=== PATIENT | male | born 1995 | race Caucasian/White ===

== ENCOUNTER 2017-06-13 05:46 | Emergency (ER) | payer SELFPAY ==
[~2017-06-13] VITALS: Ht 175.3 cm; Wt 102.1 kg
[~2017-06-13 05:46] MED LIST: BACTRIM DS 8001 TAB PO; BENTYL10 M1 PO; DICLOFENAC 50MG50 MG PO; FLEXERIL10 MG PO; KEFLEX 500MG.500 MG PO; MEDROL 4MG. DOSE4 MG PO; NAPROSYN 500MG500 MG PO; ONDANSETRON4 M1 PO; PHENERGAN25 M3 PO; PREDNISONE 20MG20 MG PO; ZITHROMAX Z PA250 MG PO; ZOFRAN ODT8 M1 PO
[2017-06-13 06:10] LABS: HEMOGLOBIN 16.3 g/dL (14.1-18.0); LYMPH % 18.4 % (10-50)
[2017-06-13 06:11] LABS: LYMPH # 2.2 K/mm3 (0.7-4.5)
[2017-06-13 06:15] LABS: URINE BILIRUBIN - DIPSTICK NEGATIVE (NEG); URINE BLOOD NEGATIVE (NEG)
--- NOTE | 2017-06-13 06:27 | Emergency Room Report ---
History of Present Illness Time Seen by 0600 Presenting Problem in Triage Pt arrived:Walked Presenting Problem:C/O ABD PAIN X 1 MONTH. 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 N Clinical Suspician of Infection? N Mental Status: 1 - Regular (Normal Baseline) Sepsis Risk:Low Sepsis Risk Have you (or family members/close friends) recently traveled outside the [place]? N If Yes, where/when: Have you had exposure to infectious disease within the past month? N TB? Other? Specify: Source patient, RN notes reviewed, family, old records Exam Limitations no limitations Comment upper abd pain with nausea with no melena - has hx of gerd and no melena with neg gb u/s Cardiac Chest Pain Chest pain indicative of cardiac No Timing/Duration this evening Severity moderate ALLERGIES Coded Allergies: No Known Allergies (05/21/17) Home Medications Reported Medications No Known Home Medications History Medical History General CAD? No Angina: No NM: No Hypertension? No Hyperlipidemia? No CHF? No DVT? No PE? No COPD? No Asthma? No Anemia? No GERD? No Gastric ulcers? No GI Bleed? No Hernia? No Thyroid Problems? No Hypothyroidism? No CVA? No Seizures? No Diabetes? No Insulin Dependent: No Insulin Pump: No Home FSBS? No Renal Insuffiency? No End Stage Renal Disease? No UTI? No Stones? No BPH? No GB Disease: No Nephritic Syndrome? No Asplenia? No Hepatitis? No Sickle Cell Disease? No Arthritis? No Migraines? No Cataracts? No Glaucoma? No MRSA? No HIV? No TB? No Anxiety? No Depression? No Cancer? No More? No Immunization Hx DT/Tetanus 1-4 Years Ago Surgical Hx Previous Surgery?Y Tonsils EAR TUBES Social History Smoking Hx Smoker: Current Every Day Smoker Tobacco: Yes Type Cigarettes Packs/day 1 1/2 - 2 Packs Alcohol Alcohol: No Drugs none Review of Systems All Other Systems Reviewed and Negative Constitutional denies fever Eyes denies drainage ENT denies: ear discharge, epistaxis, throat pain. Respiratory denies cough, denies wheezing Cardiovascular denies chest pain, denies edema, denies syncope Gastrointestinal see HPI, abdominal pain, denies diarrhea, nausea, vomiting Genitourinary denies: dysuria, frequency, hesitancy, hematuria. Musculoskeletal denies back pain, denies joint pain, denies neck pain Skin denies rash Psychiatric/Neurological denies headache, denies seizure Physical Exam Vital Signs Vital Signs Date Time Temp Pulse Resp B/P Pulse O2 O2 Flow FiO2 Ox Delivery Rate 06/13 0713 98.3 67 18 99 06/13 0712 98.3 67 18 99 06/13 0551 98.3 76 18 99 - WBC >12,000 or <4,000 or 10% bands? 2 or more SIRS Criteria Met? B/P: MAP:93 Creatinine >2.0? UA output<0.5ml/kg/hr for 2 hrs? Platelet count >100,000? Lactate >2.0mmol/1? INR >1.2 or PTT > than 60 sec? Evidence of Organ Dysfunction? Provider documented clinical suspician of infection? N Sepsis Criteria Count: 0 Sepsis Risk: Low Sepsis Risk General Appearance no apparent distress Eye Exam - bilateral eye PERRL, bilateral eye EOMI Ear, Nose, Throat normal ENT inspection Neck supple Respiratory Status No: respiratory distress. 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 No Results/Orders Laboratory Tests 06/13/17 0624: Stl Aeromonas (PCR) Pending, Stl Cyclospora species Pending, Stool Rotavirus ( PCR) Pending, Stool Astrovirus (PCR) Pending, Stool Campylobacter PCR Pending, Stool Cryptosporidium PCR Pending, Stl E. histolytica PCR Pending, Stool Giardia Lamblia PCR Pending, Stl P. shigelloides PCR Pending, Stool Sapovirus (PCR) Pending, Stool Vibrio (PCR) Pending, Stl Vibrio cholerae PCR Pending, Stl Norovirus GI/GII PCR Pending, Adenovirus (PCR) Pending, C. difficile Tox (PCR) Pending, E. coli (PCR) Pending, Salmonella (PCR) Pending, Yersinia (PCR) Pending 06/13/17 0555: Urine Color YELLOW, Urine Appearance CLEAR, Urine pH 6.0, Ur Specific Garfield 1.025, Urine Protein NEGATIVE, Urine Ketones NEGATIVE, Urine Blood NEGATIVE, Urine Nitrate NEGATIVE, Urine Bilirubin NEGATIVE, Urine Urobilinogen 0.2, Ur Leukocyte Esterase NEGATIVE, Urine RBC 3-5, Urine WBC NONE, Ur Squamous Epith Cells OCC, Urine Bacteria 1+, Urine Glucose NEGATIVE 06/13/17 0550: Sodium 138, Potassium 4.1, Chloride 101, Carbon Dioxide 28, BUN 19 H, Creatinine 1.0, Estimated Creat Clear 169, Estimated GFR (MDRD) 94, Glucose 132 H, Calcium 9.4, Total Bilirubin 0.4, AST 20, ALT 59, Alkaline Phosphatase 101, Total Protein 8.3 H, Albumin 4.4, Globulin 3.9 H, Albumin/Globulin Ratio 1.1, Amylase 46, Lipase 80, WBC 12.0 H, RBC 5.39, Hgb 16.3, Hct 48.2, MCV 89.5, RDW 14.7, Plt Count 208, Gran % 77.1, Gran # 9.3 H, Lymphocytes % 18.4, Monocytes % 4.5, Lymphocytes # 2.2, Monocytes # 0.5, PUBS MCHC 33.8, MCH 30.2 Current Medication Orders Sig/Florina Start time Last Medication Dose Route Stop Time Status Admin Metoclopramide HCl 0 .STK-MED ONE 06/13 657 DC .ROUTE Famotidine 0 .STK-MED ONE 06/13 0656 DC IV Famotidine 20 MG ONCE ONE 06/13 645 DC 06/13 IV 06/13 646 0704 Metoclopramide HCl 10 MG ONCE ONE 06/13 645 DC 06/13 IVP 06/13 0646 0704 Sodium Chloride 8 ML ONCE ONE 06/13 645 DC 06/13 IV 06/13 0646 0705 Ondansetron HCl 0 .STK-MED ONE 06/13 603 DC .ROUTE Sodium Chloride 1,000 ML .STK-MED ONE 06/13 603 DC IV Ondansetron HCl 4 MG ONCE ONE 06/13 06 DC 06/13 IV 06/13 0601 0607 Sodium Chloride 10 ML PRN PRN 06/13 0600 AC 06/13 IV 06/14 0558 0608 Sodium Chloride 1,000 ML .Q1H1M 06/13 06 DC 06/13 IV 06/13 0700 0606 Sodium Chloride 10 ML PRN PRN 06/13 0600 AC IV 06/14 0559 Orders Procedure Date/time Status DIET-NOTHING BY MOUTH 06/[address] ABD & PELVIS W/O CONTRAST 06/13 06 Active DIARRHEA PANEL, PCR 06/[address] ABD W/RLQ PAIN REQ 06/13 05 Complete IV SALINE LOCK 06/13 559 Active URINALYSIS/COMPLETE 06/13 0559 Complete LIPASE 06/13 0559 Complete CBC WITH AUTO DIFF 06/13 559 Complete CHEM 12 PROFILE 06/13 0559 Complete AMYLASE 06/13 0559 Complete XRAY/CT/US XRAY/CT/US CT abdomen, pelvis CT interpretation by discussed w/radiologist Time results known: 727 CT Results normal/NAD Departure Departure Time of Disposition 727 Disposition DC Home or Self Care(routine) Clinical Impression Primary Impression: Abdominal pain Qualifiers: Abdominal location: unspecified location Qualified Code: R10.9 - Unspecified abdominal pain Secondary Impressions: GERD (gastroesophageal reflux disease) Qualifiers: Esophagitis presence: esophagitis presence not specified Qualified Code: K21.9 - Gastro-esophageal reflux disease without esophagitis Condition STABLE Referrals Maribel Matthew APRN (Family) Patient Instructions DI for Gastroesophageal Reflux Disease (GERD) -- Child Additional Instructions use meds and see pcp for follow up Discharge Counseling Counseled pt/family regarding diagnosis, test results, medications/RX, follow up needs Prescriptions Current Visit Scripts Pantoprazole Sodium (Protonix 40MG TAB) 40 MG PO DAILY #30 TAB ED Critical Care Critical Care No at 0730
[2017-06-13 06:32] LABS: AEROMONAS NOT DETECTED (NOT DETECTE); ASTROVIRUS NOT DETECTED (NOT DETECTE); CYCLOSPORA CAYETANENSIS NOT DETECTED (NOT DETECTE); E COLI O157 NOT DETECTED (NOT DETECTE); ENTEROAGGREGATIVE E COLI NOT DETECTED (NOT DETECTE); ENTEROPATHOGENIC E COLI NOT DETECTED (NOT DETECTE); ENTEROTOXIGENIC E COLI NOT DETECTED (NOT DETECTE); NOROVIRUS NOT DETECTED (NOT DETECTE); SAPOVIRUS NOT DETECTED (NOT DETECTE); SHIGA-LIKE TOXIN PROD. E COLI NOT DETECTED (NOT DETECTE); SHIGELLA/ENTEROINVASIVE E COLI NOT DETECTED (NOT DETECTE); VIBRIO CHOLERAE NOT DETECTED (NOT DETECTE)
[2017-06-13 06:44] LABS: URINE SQUAMOUS CELLS OCC #/hpf (OCC)
[2017-06-13] MEDS ORDERED: PROTONIX 40MG T40 MG PO (07:30)
[2017-06-13 07:38] VITALS: BP 138/65
--- NOTE | 2017-06-13 09:27 | RADIOLOGY REPORT PS360 ---
CT ABD PELVIS W/O CONTRAST CLINICAL INDICATION: RUQ PAIN ORDERING PHYSICIAN: Nathalia Saunders MD PATIENT AGE: 21 years COMPARISON: None TECHNIQUE: Axial images obtained with sagittal and coronal reformats. PROCEDURE: Oral Contrast: None IV Contrast: None . FINDINGS: Lower thorax: No acute finding ABDOMEN: Liver: No masses or biliary dilatation. Gallbladder: Nondistended. No radio opaque stones. Pancreas: No masses or peripancreatic fluid collections. Spleen: Unremarkable. Adrenals: Unremarkable Kidneys/ureters: No masses. No renal calculi. No hydronephrosis. No perinephric fluid collections. No ureteral dilatation or obvious ureteral calculi. Stomach bowel: Nondistended. No obvious mass or thickening. Nonspecific hyperdense material present within the colon consistent with ingested material Appendix: No evidence of appendicitis. PELVIS: Reproductive: Unremarkable Bladder: Nondistended. No obvious stones or masses. ABDOMEN & PELVIS: Peritoneum: No abnormal fluid collections. No obvious inflammatory changes. No free air. Lymph nodes: No enlarged lymph nodes apparent. Vasculature: No evidence of abdominal aortic aneurysm. No retroperitoneal hemorrhage evident. Bones: No acute fracture IMPRESSION: No acute intra-abdominal or pelvic findings
== END 2017-06-13 07:39 | disposition home or self-care (01) ==
LOC: ER 05:46
PROVIDERS: Emergency Medicine
DX: R10.9 Unspecified abdominal pain (principal); K21.9 Gastro-esophageal reflux disease without esophagitis; F17.210 Nicotine dependence, cigarettes, uncomplicated
CPT/HCPCS: J2405

== ENCOUNTER 2017-08-19 23:14 | Emergency (ER) | payer SELFPAY ==
[~2017-08-19] VITALS: Ht 175.3 cm; Wt 104.3 kg
[~2017-08-19 23:14] MED LIST changes: +PROTONIX 40MG T40 MG PO
[2017-08-19 23:23] VITALS: BP 150/78
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
--- OUTSIDE RECORDS SUMMARY | 2017-08-19 23:45 | External Medical Summary Rpt | CCD ---
Author Author , SANTA Organization SANTA Address Unknown Phone [email or web address] Care Team Providers Care Operations Engineer Name Role Phone [employer] Unavailable Unavailable INC, [employer] BOCOOKRAMA, Unavailable Unavailable BOCOOK, [facility]A D [facility] Un[facility] Un[facility] Unavailable Unavailable [facility], [facility] Unavailable Unavailable [facility], [facility] Genny SON, Unavailable Unavailable Genny SON [facility], [facility] Unavailable Unavailable [facility], Unavailable [facility] ANUM, Unavailable Unavailable ANDREIA Butler, ANDREIA ROWAN [place] J, Unavailable Unavailable JESSICA SCHRO[facility]ER [facility] Unavailable Unavailable INC, [facility] Unavailable Unavailable HOSPITAL, [facility] JORGE LUIS PAGE, Unavailable Unavailable JORGE LUIS PAGE [facility] Unavailable Unavailable IMAGING ASS, [facility] Un[facility] Unavailable C[facility], [facility] ANGELA BELTRAN, Unavailable Unavailable ANGELA BELTRAN [facility], Unavailable Unavailable [facility] Unavailable Unavailable ASSOCI, [facility] NEUS ELLIOTT, NEUS ELLIOTT Unavailable Unavailable [facility] Unavailable Unavailable EMS, [facility], Unavailable Unavailable PLLC, [facility], [facility] FABIENNE RODRIGUEZ, Unavailable Unavailable FABIENNE RODRIGUEZ [facility], Unavailable Unavailable [facility], Unavailable Unavailable [facility] Unavailable Unavailable EMERGENCY PHYS, [facility] SIMÓN JARRELL, Unavailable Unavailable SIMÓN [...] NOT PHYSICIANS, SPECIFIED PLLC ACUTE OR CHRONIC [id number] ACUTE 12-09-2015 [facility] SUPPURATIVE [facility] W/O HOSPITAL RUPT EAR DRUM UNS EAR J029 ACUTE 12-09-2015 [facility] PHARYNGITIS [facility] UNSPECIFIED R05 COUGH 12-09-2015 [facility] J209 ACUTE 09-28-2015 [facility] BRONCHITIS [facility] UNSPECIFIED HOSPITAL [id number] PAIN IN 09-28-2015 [place] RIGHT HAND MEDICAL IMAGING ASS [id number] UNSPECIFIED 09-28-2015 [facility] INJURY RT PHYSICIANS, WRIST HAND PLLC FINGERS INITIAL Z720 TOBACCO USE 09-28-2015 [facility] HOSP INC J0190 ACUTE 08-05-2015 [place] SINUSITIS [facility] M542 CERVICALGIA 07-14-2015 [facility] M549 DORSALGIA 07-14-2015 [facility] UNSPECIFIED HEALTH R0602 SHORTNESS 06-26-2015 [place] OF BREATH RADIOLOGY ASSOCIAT R0789 OTHER CHEST 06-26-2015 [place] PAIN MEDICAL IMAGING ASS R079 CHEST PAIN 06-26-2015 [place] UNSPECIFIED RADIOLOGY ASSOCIAT R102 PELVIC AND 06-26-2015 [place] PERINEAL MEDICAL PAIN IMAGING ASS R509 FEVER 06-26-2015 [facility] UNSPECIFIED N EMERGENCY PHYS [id number] UNSPECIFIED 06-26-2015 [place] INJURY OF MEDICAL HEAD IMAGING ASS INITIAL ENCOUNTER [id number] UNSPECIFIED 06-26-2015 [place] INJURY OF MEDICAL PELVIS IMAGING ASS INITIAL ENCOUNTER T07 UNSPECIFIED 06-26-2015 [facility] EMS Z041 ENCOUNTER 06-26-2015 [place] EXAM&OBSERV MEDICAL FOLLOW IMAGING ASS TRANSPORT ACCIDENT R110 NAUSEA 06-25-2015 [facility] R112 NAUSEA WITH 06-25-2015 [facility] UNSPECIFIED HOSPITAL 99893 CHEST PAIN 06-09-2015 [place] UNSPECIFIED MEDICAL IMAGING ASS 71285 OTHER CHEST 06-09-2015 [facility] PAIN PHYSICIANS, [facility] 7840 HEADACHE 02-13-2015 [facility] 92552 VOMITING 01-21-2015 [facility] ALONE HEALTH 4610 ACUTE 01-05-2015 [place] MAXILLARY [facility] SINUSITIS HOSPITAL 7295 PAIN IN 12-12-2014 [place] SOFT MEDICAL TISSUES OF IMAGING ASS LIMB 89385 CONTUSION 12-12-2014 [facility] TECHNOLOGIE S INC 9594 INJURY 12-12-2014 [place] OTHER AND MEDICAL UNSPECIFIED IMAGING ASS HAND EXCEPT FINGER 54278 NAUSEA 09-26-2014 [facility] ALONE HEALTH 3670 HYPERMETROP 09-25-2014 ANGELA MO GRE 5289 OTHER&UNSPE 08-11-2014 [facility]/CO CIFIED HEALTH DISEASES THE ORAL SOFT TISSUES 06594 PAINFUL 05-06-2014 [facility] RESPIRATION N EMERGENCY PHYS 6826 CELLULITIS 04-08-2014 [facility] OF LEG INC EXCEPT FOOT 47900 PAIN IN 04-08-2014 [place] JOINT, MEDICAL LOWER LEG IMAGING ASS 67146 PAIN IN 04-08-2014 [place] JOINT, MEDICAL ANKLE AND IMAGING ASS FOOT 18860 CONTUSION 04-08-2014 [facility] OF LOWER MEM HOS[facility] LEG INC 9597 INJURY 04-08-2014 [place] OTHER&UNSPE MEDICAL CIFIED KNEE IMAGING ASS LEG ANKLE&FOOT 7245 UNSPECIFIED 12-28-2012 [facility] 83435 SPASM OF 12-28-2012 [facility] 462 ACUTE 08-25-2011 NEUS ELLIOTT PHARYNGITIS 8489 UNSPECIFIED 07-18-2011 [facility] SPRAIN AND SCHOOL STRAIN 7862 COUGH 06-17-2011 [facility] 34308 REGULAR 02-01-2011 [facility] V758 SCREENING 11-25-2010 [facility]AM[facility] OTH SPEC SCHOOL PARASITIC INFS V703 OTH GENERAL 05-28-2010 [facility] ADMIN PURPOSES 7842 SWELLING 12-08-2009 [place] MASS OR RADIOLOGY LUMP IN ASSOCIATES HEAD AND PSC NECK 8020 NASAL 12-08-2009 [facility], EMERGENCY CLOSED SERVICES FRACTURE ASSOCIATES 96210 INJURY OF 12-08-2009 [place] FACE AND RADIOLOGY NECK OTHER ASSOCIATES AND PSC UNSPECIFIED 16308 CLOSED 07-17-2009 JESSICA FRACTURE OF SCHROEDER SHAFT OF METACARPAL BONE 44887 CLOSED 05-26-2009 ANGELA FRACTURE EMERGENCY METACARPAL SERVICES BONE SITE ASSOCIATES UNSPECIFIED 9599 INJURY 05-26-2009 [place] OTHER AND RADIOLOGY UNSPECIFIED ASSOCIATES PSC UNSPECIFIED SITE V5489 OTHER 05-26-2009 [place] ORTHOPEDIC RADIOLOGY AFTERCARE ASSOCIATES PSC 3671 MYOPIA 03-18-2009 DORINDA MCHUGH OD V720 EXAMINATION 03-18-2009 DORINDA Miranda OF EYES LOLITA OD AND VISION 4779 ALLERGIC 02-05-2009 Genny SON RHINITIS L CAUSE UNSPECIFIED 6820 CELLULITIS 09-12-2008 Genny SON AND ABSCESS L OF FACE 50011 UNSPECIFIED 07-14-2008 Genny SON INFECTIVE L OTITIS EXTERNA 9114 TRNK INSECT 06-11-2008 [facility] BITE HEALTH NONVENOMOUS CENTRAL WITHOUT BANK ACCT MENTION INF 9164 HIP THI 06-11-2008 [facility] LEG&ANK HEALTH INSECT BITE CENTRAL BANK ACCT NONVENOMOUS W/O INF 61626 UNSPECIFIED 06-09-2008 [facility]. K04.7 PERIAPICAL ABSCESS WITHOUT SINUS K08.89 [...] 20 FA KE OP 41 10 10 PA RR HE 0 LY IC N- K [...] End Date Code Location Performer Type Date [facility] - 6 6 [facility] 5 [facility] - [facility] - 0 0 W [facility] - 9 9 W [facility]
--- OUTSIDE RECORDS SUMMARY | 2017-08-19 23:46 | External Medical Summary Rpt | CCD ---
Author Author , SANTA TALAMANTESXOCHITL Address Unknown Phone [email or web address] Care Team Providers Care Rental Clerk Name Role Phone [employer] Unavailable Unavailable INC, [employer] DIAMONDOOKRAMA, Unavailable Unavailable BOCOOK, RAMA D [facility] Unavailable Unavailable S[facility], [facility] Unavailable Unavailable SCHOOL, [facility] [employer] [facility] Unavailable Unavailable SCHOOL, [facility] [employer] [facility] Genny SON, Unavailable Unavailable Genny SON [facility], [facility] Unavailable Unavailable [facility], Unavailable [facility]available [facility] ANUM, Unavailable Unavailable ANDREIA Butler, ANDREIA ROWAN [place] J, Unavailable Unavailable JESSICA SCHROEDER [facility] Unavailable Unavailable INC, [facility] Unavailable Unavailable HOSPITAL, [facility] JORGE LUIS PAGE, Unavailable Unavailable JORGE LUIS PAGE [facility] Unavailable Unavailable IMAGING ASS, [facility] Un[facility] ANGELA BELTRAN, Unavailable Unavailable ANGELA BELTRAN [facility], Unavailable Unavailable [facility] Unavailable Unavailable ASSOCI, [facility] NEUS ELLIOTT, NEUS ELLIOTT Unavailable Unavailable [facility] Unavailable Unavailable EMS, [facility], Unavailable Unavailable [facility], [facility] FABIENNE RODRIGUEZ, Unavailable Unavailable FABIENNE RODRIGUEZ [facility], Unavailable Unavailable [facility], Unavailable Unavailable [facility] Unavailable Unavailable EMERGENCY PHYS, [facility] SIMÓN JARRELL, Unavailable Unavailable SIMÓN JARRELL Purpose Continuity of Care Document - 06-09-2008 through 2016 Problems Code Diagnosis DOS Provider Status [id number] OTITIS 03-19-2016 [facility]IA [facility], UNSPECIFIED PLLC RIGHT EAR J40 BRONCHITIS 03-19-2016 [facility] NOT PHYSICIANS, SPECIFIED PLLC ACUTE OR CHRONIC [id number] ACUTE 12-09-2015 [place] SUPPURATIVE [facility] W/O HOSPITAL RUPT EAR DRUM UNS EAR J029 ACUTE 12-09-2015 [place] PHARYNGITIS [facility] UNSPECIFIED R05 COUGH 12-09-2015 [facility] J209 ACUTE 09-28-2015 [place] BRONCHITIS [facility] [id number] PAIN IN 09-28-2015 [facility] RIGHT HAND MEDICAL IMAGING ASS [id number] UNSPECIFIED 09-28-2015 [facility] INJURY RT PHYSICIANS, WRIST HAND PLLC FINGERS INITIAL Z720 TOBACCO USE 09-28-2015 [facility] HOSP INC J0190 ACUTE 08-05-2015 [place] SINUSITIS [facility] UNSPECIFIED HOSPITAL M542 CERVICALGIA 07-14-2015 [facility] M549 DORSALGIA 07-14-2015 [facility] UNSPECIFIED HEALTH R0602 SHORTNESS 06-26-2015 [place] OF BREATH RADIOLOGY ASSOCIAT R0789 OTHER CHEST 06-26-2015 [facility] MEDICAL IM[facility]ING ASS R079 CHEST PAIN 06-26-2015 [facility] UNSPECIFIED RADIOLOGY ASSOCIAT R102 PELVIC AND 06-26-2015 [facility] PER[facility]ICAL PAIN IMAGING ASS R509 FEVER 06-26-2015 [facility] UNSPECIFIED N EMERGENCY PHYS [id number] UNSPECIFIED 06-26-2015 [facility] INJURY OF MEDICAL HEAD IMAGING ASS INITIAL ENCOUNTER [id number] UNSPECIFIED 06-26-2015 [facility] INJURY OF MEDICAL PELVIS IMAGING ASS INITIAL ENCOUNTER T07 UNSPECIFIED 06-26-2015 [facility] INJURIES [facility] EMS Z041 ENCOUNTER 06-26-2015 [place] EXAM&OBSERV MEDICAL FOLLOW IMAGING ASS TRANSPORT ACCIDENT R110 NAUSEA 06-25-2015 [facility] R112 NAUSEA WITH 06-25-2015 [place] VOMITING [facility] UNSPECIFIED HOSPITAL 89214 CHEST PAIN 06-09-2015 [place] UNSPECIFIED MEDICAL IMAGING ASS 02365 OTHER CHEST 06-09-2015 [facility] PAIN PHYSICIANS, PLLC 7840 HEADACHE 02-13-2015 [facility] 35387 VOMITING 01-21-2015 [facility] ALONE [facility]ALTH 4610 ACUTE 01-05-2015 [place] MAXILLARY [facility] SINUS[facility]IS [facility]OSPITAL 7295 PAIN IN 12-12-2014 [place] SOFT MEDICAL TISSUES OF IMAGING ASS LIMB 38648 CONTUSION 12-12-2014 [facility] HAND TECHNOLOGIE S INC 9594 INJURY 12-12-2014 [place] OTHER AND MEDICAL UNSPECIFIED IMAGING ASS HAND EXCEPT FINGER 45329 NAUSEA 09-26-2014 [facility] ALONE [facility] 3670 HYPERMETROP 09-25-2014 [facility] GRE 5289 OTHER&UNSPE 08-11-2014 [facility] CIFIED HEALTH DISEASES THE ORAL SOFT TISSUES 76095 PAINFUL 05-06-2014 [facility] RESPIRATION N EMERGENCY PHYS 6826 CELLULITIS 04-08-2014 [facility]OS[facility] OF LEG INC EXCEPT FOOT 37030 PAIN IN 04-08-2014 [place] JOINT, MEDICAL LOWER LEG IMAGING ASS 75815 PAIN IN 04-08-2014 [place] JOINT, MEDICAL ANKLE AND IMAGING ASS FOOT 88478 CONTUSION 04-08-2014 [facility] OF LOWER MEM HOSP LEG INC 9597 INJURY 04-08-2014 [place] OTHER&UNSPE MEDICAL CIFIED KNEE IMAGING ASS LEG ANKLE&FOOT 7245 UNSPECIFIED 12-28-2012 [facility] 52589 SPASM OF 12-28-2012 [facility] 462 ACUTE 08-25-2011 NEUS ELLIOTT PHARYNGITIS 8489 UNSPECIFIED 07-18-2011 [facility] SPRAIN AND SCHOOL STRAIN 7862 COUGH 06-17-2011 [facility] 49814 REGULAR 02-01-2011 [facility] V758 SCREENING 11-25-2010 [facility] PARASITIC INFS V703 OT GENERAL 05-28-2010 [facility] MEDICAL PRIMARY EXAM[facility]ATION CARE CENTER ADMIN PURPOSES 7842 SWELLING 12-08-2009 [facility] MASS OR RADIOLOGY LUMP IN ASSOCIATES HEAD AND PSC NECK 8020 NASAL 12-08-2009 ANGELA BONES, EMERGENCY CLOSED SERVICES FRACTURE ASSOCIATES 61634 INJURY OF 12-08-2009 [facility] FACE AND RADIOLOGY NECK OTHER ASSOCIATES AND PSC UNSPECIFIED 20965 CLOSED 07-17-2009 JESS[facility] FRACTURE OF [place] SHAFT OF METACARPAL BONE 06358 CLOSED 05-26-2009 AN[place]EL[place] FRACTURE EMERGENCY METACARPAL SERVICES BONE SITE ASSOCIATES UNSPECIFIED 9599 INJURY 05-26-2009 [facility] OTHER AND RADIOLOGY UNSPECIFIED ASSOCIATES PSC UNSPECIFIED SITE V5489 OTHER 05-26-2009 [facility] ORTHOPEDIC [facility]IOLOG[facility] AFTERCARE ASSOCIATES PSC 3671 MYOPIA 03-18-2009 DORINDA MCHUGH OD V720 EXAMINATION 03-18-2009 DORINDA Miranda OF EYES LOLITA OD AND VISION 4779 ALLERGIC 02-05-2009 Genny SON RHINITIS L CAUSE UNSPECIFIED 6820 CELLULITIS 09-12-2008 Genny SON AND ABSCESS L OF FACE 48895 UNSPECIFIED 07-14-2008 Genny SON INFECTIVE L OTITIS EXTERNA 9114 TRNK INSECT 06-11-2008 [facility] BITE HEALTH NONVENOMOUS CENTRAL WITHOUT BANK ACCT MENTION INF 9164 HIP THI 06-11-2008 [facility] LEG&ANK HEALTH INSECT BITE CENTRAL BANK ACCT NONVENOMOUS W/O INF 95065 UNSPECIFIED 06-09-2008 [facility] Medications Na ND Rx Da Fi Fi [...] .0 YN 18 PE ti 10 9 9- 00 OL 61 -B ve 34 20 20 DS UR 90 11 11 NS 5 PH AR SA MA LL CY Y AC 00 01 01 16 4 RE 69 PO Ac ET 40 -3 -3 .0 YN 14 PE ti AM 60 1- 1- 00 OL 31 -B ve IN 48 [...] 20 FA KE OP 41 10 10 WI RR HE 0 LY IC N- K CO DR L D UG #3 TA BL ET AM 00 12 12 00 30 10 RE 67 No Ac OX 78 -1 -3 .0 YN 47 t ti IC 12 4- 1- 00 OL 28 Av ve IL 61 20 20 DS ai LI 30 09 09 la N 5 PH bl 50 AR e 0 MA MG CY CA PS UL E 00 09 00 24 4 RE 67 PO Ac 59 -0 -2 .0 YN 03 RN ti 10 8- 4- 00 OL 74 OY ve 34 20 20 DS 90 09 09 GE 5 PH OF AR FR MA EY CY A 00 09 00 20 20 RE 67 MEI Ac 59 -1 -2 .0 YN 06 RR ti 10 OL 04 IS ve 34 20 20 [...] .0 YN 01 IN ti XI 37 6 OL 87 DL ve CA 23 20 20 DS EY M 40 08 09 M 7. 1 PH L 5 AR MG MA CY TA BL ET CE 68 12 01 00 40 10 RE 66 BR Ac PH 18 -2 -0 .0 YN 01 IN ti AL 00 OL 86 DL ve EX 12 20 20 DS EY IN 20 08 09 M 2 PH L 50 AR 0 MA MG CY CA PS UL E Encounters Encounter Start End Date Code Location Performer Type Date [facility] - 6 6 [facility] [place] - 5 5 W [facility] 4 4 [facility] 0 [facility] 9 9 W [facility]
--- OUTSIDE RECORDS SUMMARY | 2017-08-19 23:46 | External Medical Summary Rpt ---
Author Author [employer] Owen, [employer] Address Unknown Phone Unavailable Results DIARRHEA PANEL,PCR Observa Value Referen Units Interpr Notes Date tion ce etation Range Adenovi NOT NOT No No No Sep 26 sanju DETECTE DETECTE informa informa informa 2017 40+41 D tion in tion in tion in 6:24 AM Ag source source source [Presen data data data ce] in Stool Aeromon NOT NOT No No No Sep 26 as DETECTE DETECTE informa informa informa 2016 salmoni D tion in tion in tion in 6:24 AM gerber source source source [Presen data data data ce] in Unspeci fied specime n Astrovi NOT NOT No No No Sep 26 sanju DETECTE DETECTE informa informa informa 2017 [Presen D tion in tion in tion in 6:24 AM ce] in source source source Stool data data data by Electro n microsc opy Campylo NOT NOT No No No Sep 26 bacter DETECTE DETECTE informa informa informa 2016 sp Ab D tion in tion in tion in 6:24 AM [Presen source source source ce] in data data data Serum Clostri NOT NOT No No No Sep 26 dium DETECTE DETECTE informa informa informa 2017 diffici D tion in tion in tion in 6:24 AM le source source source toxin data data data A+B [Presen ce] in Stool Cryptos NOT NOT No No No Sep 26 poridiu DETECTE DETECTE informa informa informa 2017 m sp Ag D tion in tion in tion in 6:24 AM source source source [Presen data data data ce] in Unspeci fied specime n Cyclosp NOT NOT No No No Sep 26 ora DETECTE DETECTE informa informa informa 2017 cayetan D tion in tion in tion in 6:24 AM bobbi source source source [Presen data data data ce] in Unspeci fied specime n Escheri NOT NOT No No No Sep kj DETECTE DETECTE informa informa informa 2017 coli D tion in tion in tion in 6:24 AM [Presen source source source ce] in data data data Unspeci fied specime n by Culture FDA method Escheri NOT NOT No No No Jun 13 kj DETECTE DETECTE informa informa informa 2017 coli D tion in tion in tion in 6:24 AM [Presen source source source ce] in data data data Unspeci fied specime n by Culture FDA method Escheri NOT NOT No No No Sep kj DETECTE DETECTE informa informa informa 2017 coli D tion in tion in tion in 6:24 AM Shiga-l source source source david data data data toxin 1 assa Escheri NOT NOT No No No Jun 13 kj DETECTE DETECTE informa informa informa 2017 coli D tion in tion in tion in 6:24 AM [id number] source source source data data data [Presen ce] in Stool by Organis m specifi c culture Entamoe NOT NOT No No No Sep ba DETECTE DETECTE informa informa informa 2017 histoly D tion in tion in tion in 6:24 AM cindy source source source [Presen data data data ce] in Stool by Trichro me stain Giardia NOT NOT No No No Jun 13 DETECTE DETECTE informa informa informa 2017 lamblia D tion in tion in tion in 6:24 AM Ag source source source [Presen data data data ce] in Stool Norovir NOT NOT No No No Jun 13 us Ag DETECTE DETECTE informa informa informa 2017 [Presen D tion in tion in tion in 6:24 AM ce] in source source source Stool data data data Stool NOT NOT No No No Jun 13 Plesiom DETECTE DETECTE informa informa informa 2017 onas D tion in tion in tion in 6:24 AM shigell source source source oides data data data DNA detec Rotavir NOT NOT No No No Jun 13 us RNA DETECTE DETECTE informa informa informa 2017 detecti D tion in tion in tion in 6:24 AM on by source source source probe data data data and tar Salmone NOT NOT No No No Sep lla sp DETECTE DETECTE informa informa informa 2017 DNA D tion in tion in tion in 6:24 AM [Identi source source source fier] data data data in Unspeci fied specime n by Probe & target amplifi cation method Caliciv NOT NOT No No No Sep irus DETECTE DETECTE informa informa informa 2017 [Identi D tion in tion in tion in 6:24 AM fier] source source source in data data data Stool by Electro n microsc opy Escheri NOT NOT No No No Sep kj DETECTE DETECTE informa informa informa 2017 coli D tion in tion in tion in 6:24 AM [Presen source source source ce] in data data data Unspeci fied specime n by Culture FDA method Escheri NOT NOT No No No Sep kj DETECTE DETECTE informa informa informa 2017 coli D tion in tion in tion in 6:24 AM SXT source source source gene+H7 data data data gene [Identi fier] in Unspeci fied specime n by Probe & target amplifi cation method Vibrio NOT NOT No No No Sep cholera DETECTE DETECTE informa informa informa 2017 e DNA D tion in tion in tion in 6:24 AM [Presen source source source ce] in data data data Unspeci fied specime n by Probe & target amplifi cation method Vibrio NOT NOT No No No Sep sp DNA DETECTE DETECTE informa informa informa 2016 [Identi D tion in tion in tion in 6:24 AM fier] source source source in data data data Unspeci fied specime n by Probe & target amplifi cation method Vibrio NOT NOT No No No Sep sp DETECTE DETECTE informa informa informa 2017 identif D tion in tion in tion in 6:24 AM ied in source source source Stool data data data by Organis m specifi c culture Urinalysis dipstick W Reflex Microscopic panel in Urine Observa Value Referen Units Interpr Notes Date tion ce etation Range Appeara CLEAR CLEAR No No No Sep 26 nce of informa informa informa 2017 Urine tion in tion in tion in 5:55 AM source source source data data data Bacteri 1+ O No No No Sep 26 a informa informa informa 2017 [Presen tion in tion in tion in 5:55 AM ce] in source source source Urine data data data sedimen t by Light microsc opy Bilirub NEGATIV NEG No No No Sep 26 in E informa informa informa 2017 [Presen tion in tion in tion in 5:55 AM ce] in source source source Urine data data data by Test strip Erythro NEGATIV NEG No No No Sep cytes E informa informa informa 2017 [Presen tion in tion in tion in 5:55 AM ce] in source source source Urine data data data Color YELLOW YELLOW No No No Sep 26 of informa informa informa 2017 Urine tion in tion in tion in 5:55 AM source source source data data data Glucose NEG No No No Sep 26 [Mass/vol informati informati informati 2017 5:55 ume] in on in on in on in AM Urine by source source source Test data data data strip Ketones NEGATIV NEG mg/dL No No Sep E informa informa 2016 [Presen tion in tion in 5:55 AM ce] in source source Urine data data by Automat ed test strip Mucus NEGATIV NEG No No No Sep [Presen E informa informa informa 2016 ce] in tion in tion in tion in 5:55 AM Urine source source source sedimen data data data t by Light microsc opy Nitrite NEGATIV NEG No No No Sep E informa informa informa 2016 [Presen tion in tion in tion in 5:55 AM ce] in source source source Urine data data data by Test strip pH of 5.0 - 8.5 No Normal No Sep 26 Urine informati informati 2017 5:55 on in on in AM source source data data Protein NEG mg/dL No No Sep 26 [Mass/vol informati informati 2017 5:55 ume] in on in on in AM Urine by source source Automated data data test strip Erythro 3-5 0 rbc/hpf No No Sep 26 cytes informa informa 2017 [Presen tion in tion in 5:55 AM ce] in source source Urine data data sedimen t by Light microsc opy Specific 1.005 - No Normal No Sep 26 gravity 1.030 informati informati 2017 5:55 of Urine on in on in AM source source data data Epithel OCC OCC #/hpf No No Sep ial informa informa 2017 cells.s tion in tion in 5:55 AM quamous source source data data [Presen ce] in Urine sedimen t by Microsc opy high power field Urobili 0.2 NEG E.U./dL No No Jun 13 nogen informa informa 2016 [Presen tion in tion in 5:55 AM ce] in source source Urine data data by Test strip Leukocyte O wbc/hpf No No Sep s informati informati 2017 5:55 [#/volume on in on in AM ] in source source Urine data data Urinalysis dipstick W Reflex Microscopic panel in Urine Observa Value Referen Units Interpr Notes Date tion ce etation Range Appeara CLEAR CLEAR No No No Jun 13 nce of informa informa informa 2017 Urine tion in tion in tion in 5:55 AM source source source data data data Bilirub NEGATIV NEG No No No Jun 13 in E informa informa informa 2016 [Presen tion in tion in tion in 5:55 AM ce] in source source source Urine data data data by Test strip Erythro NEGATIV NEG No No No Jun 13 cytes E informa informa informa 2016 [Presen tion in tion in tion in 5:55 AM ce] in source source source Urine data data data Color YELLOW YELLOW No No No Jun 13 of informa informa informa 2017 Urine tion in tion in tion in 5:55 AM source source source data data data Glucose NEG No No No Jun 13 [Mass/vol informati informati informati 2017 5:55 ume] in on in on in on in AM Urine by source source source Test data data data strip Ketones NEGATIV NEG mg/dL No No Jun 13 E informa informa 2016 [Presen tion in tion in 5:55 AM ce] in source source Urine data data by Automat ed test strip Mucus NEGATIV NEG No No No Sep [Presen E informa informa informa 2016 ce] in tion in tion in tion in 5:55 AM Urine source source source sedimen data data data t by Light microsc opy Nitrite NEGATIV NEG No No No Sep 26 E informa informa informa 2016 [Presen tion in tion in tion in 5:55 AM ce] in source source source Urine data data data by Test strip pH of 5.0 - 8.5 No Normal No Sep 26 Urine informati informati 2017 5:55 on in on in AM source source data data Protein NEG mg/dL No No Sep 26 [Mass/vol informati informati 2017 5:55 ume] in on in on in AM Urine by source source Automated data data test strip Specific 1.005 - No Normal No Sep 26 gravity 1.030 informati informati 2016 5:55 of Urine on in on in AM source source data data Urobili 0.2 NEG E.U./dL No No Sep 26 nogen informa informa 2016 [Presen tion in tion in 5:55 AM ce] in source source Urine data data by Test strip Amylase [Enzymatic activity/volume] in Serum or Plasma Observa Value Referen Units Interpr Notes Date tion ce etation Range Amylase 25 - 115 U/L Normal No Sep 26 [Enzymati informati 2017 5:50 c on in AM activity/ source volume] data in Serum or Plasma Comprehensive metabolic 2000 panel in Serum or Plasma Observa Value Referen Units Interpr Notes Date tion ce etation Range Albumin/G 1.1 - 1.8 No Normal No Sep 26 lobulin informati informati 2016 5:50 [Mass on in on in AM ratio] in source source Serum or data data Plasma Albumin 3.4 - 5.0 gm/dL Normal No Sep 26 [Mass/vol informati 2016 5:50 ume] in on in AM Serum or source Plasma data Alkaline 46 - 116 U/L Normal No Sep 26 phosphata informati 2017 5:50 se on in AM [Enzymati source c data activity/ volume] in Serum or Plasma Bilirubin 0.2 - 1.0 mg/dL Normal No Sep 26 .total informati 2017 5:50 [Mass/vol on in AM ume] in source Serum or data Plasma Urea 7 - 18 mg/dL High No Sep 26 nitrogen informati 2017 5:50 [Mass/vol on in AM ume] in source Serum or data Plasma Calcium 8.5 - mg/dL Normal No Sep 26 [Mass/vol 10.1 informati 2017 5:50 ume] in on in AM Serum or source Plasma data Chloride 98 - 107 mmoL/L Normal No Sep 26 [Moles/vo informati 2016 5:50 lume] in on in AM Serum or source Plasma data Carbon 21.0 - mmoL/L Normal No Sep 26 dioxide, 32.0 informati 2016 5:50 total on in AM [Moles/vo source lume] in data Serum or Plasma Creatinin 0.70 - mg/dL Normal No Sep 26 e 1.30 informati 2016 5:50 [Mass/vol on in AM ume] in source Serum or data Plasma Creatinin 50 - 200 ML/MIN Normal No Sep 26 e renal informati 2016 5:50 clearance on in AM source predicted data by Cockcroft -Gault formula Estimated >60 ML/MIN No REFERENCE Sep 26 informati RANGE: 2016 5:50 glomerula on in >60 AM r source ML/MIN/1. filtratio data 73 SQUARE n rate METERSIf (GF this patient is -A merican, then multiply theresult by 1.210. Globulin 1.3 - 3.2 gm/dL High No Sep [Mass/vol informati 2016 5:50 ume] in on in AM Serum source data Glucose 74 - 106 mg/dL High No Sep 26 [Mass/vol informati 2016 5:50 ume] in on in AM Serum or source Plasma data Potassium 3.5 - 5.1 mmoL/L Normal No Sep 26 informati 2016 5:50 [Moles/vo on in AM lume] in source Serum or data Plasma Sodium 136 - 145 mmoL/L Normal No Sep 26 [Moles/vo informati 2016 5:50 lume] in on in AM Serum or source Plasma data Aspartate 15 - 37 U/L Normal No Sep informati 2016 5:50 aminotran on in AM sferase source [Enzymati data c activity/ volume] in Serum or Plasma Alanine 12 - 78 U/L Normal No Sep 26 aminotran informati 2016 5:50 sferase on in AM [Enzymati source c data activity/ volume] in Serum or Plasma Protein 6.4 - 8.2 gm/dL High No Sep 26 [Mass/vol informati 2016 5:50 ume] in on in AM Serum or source Plasma data Lipase [Enzymatic activity/volume] in Serum or Plasma Observa Value Referen Units Interpr Notes Date tion ce etation Range Lipase 73 - 393 U/L Normal No Sep 26 [Enzymati informati 2017 5:50 c on in AM activity/ source volume] data in Serum or Plasma CBC W Auto Differential panel in Blood Observa Value Referen Units Interpr Notes Date tion ce etation Range Granulocy 1.3 - 8.0 K/mm3 High No Sep 26 felicitas informati 2016 5:50 [#/volume on in AM ] in source Blood by data Automated count Granulocy 37.0 - % Normal No Sep 26 felicitas/100 80.0 informati 2017 5:50 leukocyte on in AM s in source Blood by data Automated count Hematocri 42.0 - % Normal No Sep 26 t [Volume 52.0 informati 2016 5:50 on in AM Fraction] source of Blood data Hemoglobi 14.1 - g/dL Normal No Sep 26 n 18.0 informati 2016 5:50 [Mass/vol on in AM ume] in source Blood data Lymphocyt 0.7 - 4.5 K/mm3 Normal No Sep 26 es informati 2016 5:50 [#/volume on in AM ] in source Unspecifi data ed specimen by Automated count Lymphocyt 10 - 50 % Normal No Sep 26 es informati 2016 5:50 [#/volume on in AM ] in source Unspecifi data ed specimen by Automated count Erythrocy 27 - 31.2 pg Normal No Sep 26 te mean informati 2017 5:50 corpuscul on in AM ar source hemoglobi data n [Entitic mass] Erythrocy 31.8 - g/dl Normal No Sep 26 te mean 35.4 informati 2016 5:50 corpuscul on in AM ar source hemoglobi data n concentra tion [Mass/vol ume] by Automated count Erythrocy 82.2 - fL Normal No Sep 26 te mean 97.8 informati 2016 5:50 corpuscul on in AM ar volume source [Entitic data volume] by Automated count Monocytes 0.1 - 1.0 K/mm3 Normal No Sep 26 informati 2016 5:50 [#/volume on in AM ] in source Blood by data Automated count Monocytes 1.7 - 9.3 % Normal No Sep 26 /100 informati 2016 5:50 leukocyte on in AM s in source Blood by data Automated count Platelets 142 - 424 K/mm3 Normal No Sep 26 informati 2017 5:50 [#/volume on in AM ] in source Blood data Erythrocy 4.6 - 6.2 M/mm3 Normal No Sep 26 felicitas informati 2017 5:50 [#/volume on in AM ] in source Amniotic data fluid Erythrocy 11.5 - % Normal No Sep 26 te 17.5 informati 2017 5:50 distribut on in AM ion width source [Entitic data volume] by Automated count Leukocyte 4.8 - K/mm3 High No Sep 26 s 10.8 informati 2016 5:50 [#/volume on in AM ] in source Blood data Comprehensive metabolic 2000 panel in Serum or Plasma Observa Value Referen Units Interpr Notes Date tion ce etation Range Albumin/G 1.1 - 1.8 No Normal No Sep 8 lobulin informati informati 2017 3:22 [Mass on in on in PM ratio] in source source Serum or data data Plasma Albumin 3.4 - 5.0 gm/dL Normal No Sep 8 [Mass/vol informati 2017 3:22 ume] in on in PM Serum or source Plasma data Alkaline 46 - 116 U/L Normal No Sep 8 phosphata informati 2017 3:22 se on in PM [Enzymati source c data activity/ volume] in Serum or Plasma Bilirubin 0.2 - 1.0 mg/dL Normal No Sep 8 .total informati 2017 3:22 [Mass/vol on in PM ume] in source Serum or data Plasma Urea 7 - 18 mg/dL Normal No Sep 8 nitrogen informati 2017 3:22 [Mass/vol on in PM ume] in source Serum or data Plasma Calcium 8.5 - mg/dL Normal No Sep 8 [Mass/vol 10.1 informati 2017 3:22 ume] in on in PM Serum or source Plasma data Chloride 98 - 107 mmoL/L Normal No Sep 8 [Moles/vo informati 2017 3:22 lume] in on in PM Serum or source Plasma data Carbon 21.0 - mmoL/L Normal No Sep 8 dioxide, 32.0 informati 2017 3:22 total on in PM [Moles/vo source lume] in data Serum or Plasma Creatinin 0.70 - mg/dL Normal No Sep 8 e 1.30 informati 2017 3:22 [Mass/vol on in PM ume] in source Serum or data Plasma Estimated >60 ML/MIN No REFERENCE Sep 8 informati RANGE: 2017 3:22 glomerula on in >60 PM r source ML/MIN/1. filtratio data 73 SQUARE n rate METERSIf (GF this patient is -A merican, then multiply theresult by 1.210. Globulin 1.3 - 3.2 gm/dL High No Sep 8 [Mass/vol informati 2016 3:22 ume] in on in PM Serum source data Glucose 74 - 106 mg/dL Normal No Sep 8 [Mass/vol informati 2016 3:22 ume] in on in PM Serum or source Plasma data Potassium 3.5 - 5.1 mmoL/L Normal No Sep 8 inform2016 3:22 [Moles/vo on in PM lume] in source Serum or data Plasma Sodium 136 - 145 mmoL/L Normal No Sep 8 [Moles/vo informati 2016 3:22 lume] in on in PM Serum or source Plasma data Aspartate 15 - 37 U/L Low No Sep 8 inform2016 3:22 aminotran on in PM sferase source [Enzymati data c activity/ volume] in Serum or Plasma Alanine 12 - 78 U/L Normal No Sep 8 aminotran informati 2016 3:22 sferase on in PM [Enzymati source c data activity/ volume] in Serum or Plasma Protein 6.4 - 8.2 gm/dL Normal No Sep 8 [Mass/vol informati 2016 3:22 ume] in on in PM Serum or source Plasma data Thyroxine (T4) free [Mass/volume] in Serum or Plasma Observa Value Referen Units Interpr Notes Date tion ce etation Range Thyroxine 0.76 - ng/dL Normal No Sep 8 (T4) 1.46 inform2016 3:22 free on in PM [Mass/vol source ume] in data Serum or Plasma Lipid 1996 panel in Serum or Plasma Observa Value Referen Units Interpr Notes Date tion ce etation Range Cholester < 200 mg/dL No No Sep 8 ol informati informati 2016 3:22 [Moles/vo on in on in PM lume] in source source Unspecifi data data ed specimen Cholester 40 - 60 MG/DL Normal No Sep 8 ol in HDL informati 2016 3:22 on in PM [Mass/vol source ume] in data Serum or Plasma Cholester 0 - 130 mg/dL Normal No Sep 8 ol in LDL informati 2016 3:22 on in PM [Mass/vol source ume] in data Serum or Plasma by calculati on Triglycer 30 - 200 mg/dL Normal No Sep 8 nori inform2016 3:22 [Moles/vo on in PM lume] in source Serum or data Plasma Cholester 0 - 40 No Normal No Sep 8 ol in informati inform2016 3:22 VLDL on in on in PM [Mass/vol source source ume] in data data Serum or Plasma Thyrotropin [Units/volume] in Serum or Plasma Observa Value Referen Units Interpr Notes Date tion ce etation Range Thyrotrop 0.358 - uIU/ml Normal No Sep 8 in 3.740 informati 2016 3:22 [Units/vo on in PM lume] in source Serum or data Plasma CBC W Auto Differential panel in Blood Observa Value Referen Units Interpr Notes Date tion ce etation Range Basophils 0 - 0.2 K/MM3 Normal No Sep 8 inform2016 3:22 [#/volume on in PM ] in source Blood by data Automated count Basophils 0.1 - 2.0 % Normal No Sep 8 /100 informati 2016 3:22 leukocyte on in PM s in source Blood by data Automated count Eosinophi 0.0 - 0.4 K/mm3 Normal No Sep 8 ls informati 2016 3:22 [#/volume on in PM ] in source Blood by data Automated count Eosinophi 0.1 - % Normal No Sep 8 ls/100 12.0 informati 2016 3:22 leukocyte on in PM s in source Blood by data Automated count Granulocy 1.3 - 8.0 K/mm3 Normal No Sep 8 felicitas 2016 3:22 [#/volume on in PM ] in source Blood by data Automated count Granulocy 37.0 - % Normal No Sep 8 felicitas/100 80.0 informati 2016 3:22 leukocyte on in PM s in source Blood by data Automated count Hematocri 42.0 - % Normal No Sep 8 t [Volume 52.0 informati 2016 3:22 on in PM Fraction] source of Blood data Hemoglobi 14.1 - g/dL Normal No Sep 8 n 18.0 informati 2016 3:22 [Mass/vol on in PM ume] in source Blood data Lymphocyt 0.7 - 4.5 K/mm3 Normal No Sep 8 es 2016 3:22 [#/volume on in PM ] in source Unspecifi data ed specimen by Automated count Lymphocyt 10 - 50 % Normal No Sep 8 es informati 2016 3:22 [#/volume on in PM ] in source Unspecifi data ed specimen by Automated count Erythrocy 27 - 31.2 pg Normal No Sep 8 te mean informati 2017 3:22 corpuscul on in PM ar source hemoglobi data n [Entitic mass] Erythrocy 31.8 - g/dl Normal No Sep 8 te mean 35.4 informati 2016 3:22 corpuscul on in PM ar source hemoglobi data n concentra tion [Mass/vol ume] by Automated count Erythrocy 82.2 - fl Normal No Sep 8 te mean 97.8 informati 2016 3:22 corpuscul on in PM ar volume source [Entitic data volume] by Automated count Monocytes 0.1 - 1.0 K/mm3 Normal No Sep 8 informati 2016 3:22 [#/volume on in PM ] in source Blood by data Automated count Monocytes 1.7 - 9.3 % Normal No Sep 8 /100 informati 2016 3:22 leukocyte on in PM s in source Blood by data Automated count Platelet 7.4 - fl Normal No Sep 8 mean 10.4 informati 2016 3:22 volume on in PM [Entitic source volume] data in Blood by Automated count Platelets 142 - 424 K/mm3 Normal No Sep 8 informati 2016 3:22 [#/volume on in PM ] in source Blood data Erythrocy 4.6 - 6.2 M/mm3 Normal No Sep 8 felicitas informati 2016 3:22 [#/volume on in PM ] in source Amniotic data fluid Erythrocy 11.5 - % Normal No Sep 8 te 17.5 informati 2016 3:22 distribut on in PM ion width source [Entitic data volume] by Automated count Leukocyte 4.8 - K/MM3 Normal No Sep 8 s 10.8 informati 2016 3:22 [#/volume on in PM ] in source Blood data
--- OUTSIDE RECORDS SUMMARY | 2017-08-19 23:46 | External Medical Summary Rpt | CCD ---
Author Author , SANTA TALAMANTESXOCHITL Address Unknown Phone [email or web address] Immunization Name Date Rout CVX Reac Dose Comm Prov Is Faci e tion ent ider Refu lity Give sed n DTaP 03-2 107 999 Hist H112 No H112 , UF 2-20 oric 00 al Info rmat ion - Sour ce Unsp ecif ied Mohan 03-0 10 999 Hist H112 No H112 o-IP 8-20 oric V 00 al Info rmat ion - Sour ce Unsp ecif ied MMR 03-0 3 999 Hist H112 No H112 8-20 oric 00 al Info rmat ion - Sour ce Unsp ecif ied DTP- 09-1 22 999 Hist H112 No H112 Hib 1-19 oric 97 al Info rmat ion - Sour ce Unsp ecif ied MMR 09-1 3 999 Hist H112 No H112 1-19 oric 97 al Info rmat ion - Sour ce Unsp ecif ied Vari 04-1 21 999 Hist H112 No H112 cell 1-19 oric a 97 al Info rmat ion - Sour ce Unsp ecif ied Hep 04-1 8 999 Hist H112 No H112 B, 1-19 oric ped/ 97 al adol Info rmat ion - Sour ce Unsp ecif ied DTP- 09-1 22 999 Hist H112 No H112 Hib 1-19 oric 96 al Info rmat ion - Sour ce Unsp ecif ied Mohna 09-1 2 999 Hist H112 No H112 o-OP 1-19 oric V 96 al Info rmat ion - Sour ce Unsp ecif ied Mohan 07-1 2 999 Hist H112 No H112 o-OP 1-19 oric V 96 al Info rmat ion - Sour ce Unsp ecif ied DTP- 07-1 22 999 Hist H112 No H112 Hib 1-19 oric 96 al Info rmat ion - Sour ce Unsp ecif ied DTP- 05-0 22 999 Hist H112 No H112 Hib 7-19 oric 96 al Info rmat ion - Sour ce Unsp ecif ied Hep 05-0 45 999 Hist H112 No H112 B, 7-19 oric UF 96 al Info rmat ion - Sour ce Unsp ecif ied Mohan 05-0 2 999 Hist H112 No H112 o-OP 7-19 oric V 96 al Info rmat ion - Sour ce Unsp ecif ied
--- OUTSIDE RECORDS SUMMARY | 2017-08-19 23:46 | External Medical Summary Rpt | CCD ---
Author Author , SANTA TALAMANTESXOCHITL Address Unknown Phone [email or web address] Care Team Providers Care Customer Consultant Name Role Phone [employer] Unavailable Unavailable INC, [employer] DIAMONDOOKRAMA, Unavailable Unavailable BOCOOK, RAMA D [facility] Unavailable Unavailable [facility], [facility] Unavailable Unavailable S[facility], [employer] [facility] Unavailable Unavailable SCHOOL, [facility] Genny SON, Unavailable Unavailable Genny SON [facility], [facility] Unavailable Unavailable [facility], Unavailable [facility] ANUM, Unavailable Unavailable ANDREIA Butler, ANDREIA ROWAN [place] J, Unavailable Unavailable JESSICA SCHROEDER [facility] Unavailable Unavailable INC, [facility] Unavailable Unavailable HOSPITAL, [facility] JORGE LUIS PAGE, Unavailable Unavailable JORGE LUIS PAGE [facility] Unavailable Unavailable IMAGING [facility], [facility] Unavailable Unavailable [facility] ANGELA BELTRAN, Unavailable Unavailable ANGELA BELTRAN [facility], Unavailable Unavailable [facility] Unavailable Unavailable [facility]OC[facility], [facility] NEUS ELLIOTT, NEUS ELLIOTT Unavailable Unavailable [facility] Unavailable Unavailable EMS, [facility], Unavailable Unavailable [facility] FABIENNE RODRIGUEZ, Unavailable Unavailable [facility], Unavailable Unavailable [facility], Unavailable Unavailable [facility] Unavailable Unavailable EMERGENCY PHYS, [facility] SIMÓN JARRELL, Unavailable Unavailable SIMÓN JARRELL Purpose Continuity of Care Document - 06-09-2008 through 2016 Problems Code Diagnosis DOS Provider Status [id number] OTITIS 03-19-2016 [facility], UNSPECIFIED PLLC RIGHT EAR J40 BRONCHITIS 03-19-2016 [facility] NOT PHYSICIANS, SPECIFIED PLLC ACUTE OR CHRONIC [id number] ACUTE 12-09-2015 [place] [facility]ATIVE [facility]PITAL RUPT EAR DRUM UNS EAR J029 ACUTE 12-09-2015 [place] PHARYNGITIS [facility] UNSPECIFIED R05 COUGH 12-09-2015 [facility] J209 ACUTE 09-28-2015 [place] BRONCHITIS [facility] [id number] PAIN IN 09-28-2015 [facility] RIGHT HAND MEDICAL IMAGING ASS [id number] UNSPECIFIED 09-28-2015 [facility] INJURY RT PHYSICIANS, WRIST HAND PLLC FINGERS INITIAL Z720 TOBACCO USE 09-28-2015 [facility] HOSP INC J0190 ACUTE 08-05-2015 [place] SINUSITIS [facility] UNSPECIFIED HOSPITAL M542 CERVICALGIA 07-14-2015 [facility] M549 DORSALGIA 07-14-2015 [facility] UNSPECIFIED HEALTH R0602 SHORTNESS 06-26-2015 [place] OF BREATH RADIOLOGY ASSOCIAT R0789 OTHER CHEST 06-26-2015 [facility] PAIN MEDICAL IM[facility]ING ASS R079 CHEST PAIN 06-26-2015 [facility] UNSPECIFIED RADIOLOGY ASSOCIAT R102 PELVIC AND 06-26-2015 [facility] PERINEAL MEDICAL PAIN IMAGING ASS R509 FEVER 06-26-2015 [facility] UNSPECIFIED N EMERGENCY PHYS [id number] UNSPECIFIED 06-26-2015 [facility] INJURY OF MEDICAL HEAD IMAGING ASS INITIAL ENCOUNTER [id number] UNSPECIFIED 06-26-2015 [facility] INJURY OF MEDICAL PELVIS IMAGING ASS INITIAL ENCOUNTER T07 UNSPECIFIED 06-26-2015 [facility] IN[facility] Z041 ENCOUNTER 06-26-2015 [place] EXAM&OBSERV MEDICAL FOLLOW IMAGING ASS TRANSPORT ACCIDENT R110 NAUSEA 06-25-2015 [facility] R112 NAUSEA WITH 06-25-2015 [place] VOMITING [facility] UNSPECIFIED HOSPITAL 05701 CHEST PAIN 06-09-2015 [place] UNSPECIFIED MEDICAL IMAGING ASS 95252 OTHER CHEST 06-09-2015 [facility] PAIN PHYSICIANS, PLL[facility] 7840 HEADACHE 02-13-2015 [facility] 76850 VOMITING 01-21-2015 [facility] ALONE [facility]ALTH 4610 ACUTE 01-05-2015 [place] MAXILLARY [facility] SINUSITIS HOSPITAL 7295 PAIN IN 12-12-2014 [place] SOFT MEDICAL TISSUES OF IMAGING ASS LIMB 71684 CONTUSION 12-12-2014 [facility]CHN[facility] S INC 9594 INJURY 12-12-2014 [place] OTHER AND MEDICAL UNSPECIFIED IMAGING ASS HAND EXCEPT FINGER 96976 NAUSEA 09-26-2014 [facility] 3670 HYPERMETROP 09-25-2014 [facility] 5289 OTHER&UNSPE 08-11-2014 [facility] CIFIED HEALTH DISEASES THE ORAL SOFT TISSUES 74818 PAINFUL 05-06-2014 [facility] RESPIRATION N EMERGENCY PHYS 6826 CELLULITIS 04-08-2014 [facility] OF LEG INC EXCEPT FOOT 65569 PAIN IN 04-08-2014 [place] JOINT, MEDICAL LOWER LEG IMAGING ASS 55143 PAIN IN 04-08-2014 [place] JOINT, MEDICAL ANKLE AND IMAGING ASS FOOT 43274 CONTUSION 04-08-2014 [facility] OF LOWER [facility] LEG INC 9597 INJURY 04-08-2014 [place] OTHER&UNSPE MEDICAL CIFIED KNEE IMAGING ASS LEG ANKLE&FOOT 7245 UNSPECIFIED 12-28-2012 [facility] 32194 SPASM OF 12-28-2012 [facility] 462 ACUTE 08-25-2011 NEUS ELLIOTT PHARYNGITIS 8489 UNSPECIFIED 07-18-2011 [facility] SPRAIN AND SCHOOL STRAIN 7862 COUGH 06-17-2011 [facility] 51870 REGULAR 02-01-2011 [facility] V758 SCREENING 11-25-2010 [facility] EXAMINATION [facility] PARASITIC INFS V703 OT GENERAL 05-28-2010 [facility] MEDICAL PRIMARY EXAMINATION CARE CENTER ADMIN PURPOSES 7842 SWELLING 12-08-2009 [facility] MASS OR RADIOLOGY LUMP IN ASSOCIATES HEAD AND PSC NECK 8020 NASAL 12-08-2009 ANGELA BONES, EMERGENCY CLOSED SERVICES FRACTURE ASSOCIATES 54089 INJURY OF 12-08-2009 [facility] FACE AND RADIOLOGY NECK OTHER ASSOCIATES AND PSC UNSPECIFIED 73947 CLOSED 07-17-2009 JESSICA FRACTURE OF [place] SHAFT OF METACARPAL BONE 95625 CLOSED 05-26-2009 ANGELA FRACTURE EMERGENCY METACARPAL SERVICES BONE SITE ASSOCIATES UNSPECIFIED 9599 INJURY 05-26-2009 [facility] OTHER AND RADIOLOGY UNSPECIFIED ASSOCIATES PSC UNSPECIFIED SITE V5489 OTHER 05-26-2009 [facility] ORTHOPEDIC RADIOLOGY AFTERCARE ASSOCIATES PSC 3671 MYOPIA 03-18-2009 DORINDA MCHUGH OD V720 EXAMINATION 03-18-2009 DORINDA Miranda OF EYES LOLITA OD AND VISION 4779 ALLERGIC 02-05-2009 Genny SON RHINITIS L CAUSE UNSPECIFIED 6820 CELLULITIS 09-12-2008 Genny SON AND ABSCESS L OF FACE 56215 UNSPECIFIED 07-14-2008 Genny SON INFECTIVE L OTITIS EXTERNA 9114 TRNK INSECT 06-11-2008 [facility] B[facility] HEALTH NONVENOMOUS CENTRAL WITHOUT BANK ACCT MENTION INF 9164 HIP THI 06-11-2008 [facility] LEG&ANK HEALTH INSECT BITE CENTRAL BANK ACCT NONVENOMOUS W/O INF 53167 UNSPECIFIED 06-09-2008 [facility] Medications Na ND Rx Da Fi [...] 20 FA KE OP 41 10 10 AK RR HE 0 LY IC N- K [...] End Date Code Location Performer Type Date [facility] - 6 6 [facility] - 5 5 [facility] - 4 4 [facility] [place] - 0 0 [facility] [place] - 9 9 [facility]
--- OUTSIDE RECORDS SUMMARY | 2017-08-19 23:46 | External Medical Summary Rpt | CCD ---
Author Author , SANTA TALAMANTESXOCHITL Address Unknown Phone [email or web address] Immunization Name Date Rout CVX Reac Dose [...] - Sour ce Unsp ecif ied Mohan 09-1 2 999 Hist H112 No H112 [...]
--- NOTE | 2017-08-19 23:48 | Emergency Room Report ---
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 N Clinical Suspician of Infection? N Mental Status: 1 - Regular (Normal Baseline) Sepsis Risk:Possible Sepsis Risk Have you (or family members/close friends) recently traveled outside the [place]? N If Yes, where/when: Have you had exposure to infectious disease within the past month? TB? Other? Specify: Source patient, RN notes reviewed, family, old records Exam Limitations no limitations Comment pt with upper abd pain which has been there about 1 month with prev nondiagnostic ct and gb u/s - pt w/o fever or melena and no def inc/dec factors Cardiac Chest Pain Chest pain indicative of cardiac No Timing/Duration this evening Severity moderate ALLERGIES Uncoded Allergies: UNKNOWN ANTIBIOTIC (Mild, NA-NAUSEA 08/19/17) Home Medications Active Scripts Pantoprazole Sodium (Protonix 40MG TAB) 40 MG PO DAILY #30 TAB Prov: 06/13/17 History Medical History General CAD? No Angina: No [place]: No Hypertension? No Hyperlipidemia? No CHF? No DVT? No PE? No COPD? No Asthma? No Anemia? No GERD? No Gastric ulcers? No GI Bleed? No Hernia? No Thyroid Problems? No Hypothyroidism? No CVA? No Seizures? No Diabetes? No Insulin Dependent: No Insulin Pump: No Home FSBS? No Renal Insuffiency? No End Stage Renal Disease? No UTI? No Stones? No BPH? No GB Disease: No Nephritic Syndrome? No Asplenia? No Hepatitis? No Sickle Cell Disease? No Arthritis? No Migraines? No Cataracts? No Glaucoma? No MRSA? No HIV? No TB? No Anxiety? No Depression? No Cancer? No More? No Immunization Hx DT/Tetanus 1-4 Years Ago Surgical Hx Previous Surgery?Y Tonsils EAR TUBES Social History Smoking Hx Smoker: Current Every Day Smoker Tobacco: Yes Type Cigarettes Packs/day < 1 Pack Alcohol Alcohol: No Drugs none Review of Systems All Other Systems Reviewed and Negative Constitutional denies fever Eyes denies drainage ENT denies: ear pain, epistaxis, throat pain. Respiratory denies cough, denies shortness of breath, denies wheezing Cardiovascular denies chest pain, denies syncope Gastrointestinal see HPI, abdominal pain, denies diarrhea, denies vomiting Genitourinary denies: dysuria, frequency, hesitancy, hematuria. Musculoskeletal denies back pain, denies joint pain, denies neck pain Skin denies rash Psychiatric/Neurological denies headache, denies seizure Physical Exam Vital Signs Vital Signs Date Time Temp Pulse Resp B/P Pulse O2 O2 Flow FiO2 Ox Delivery Rate 08/19 2323 98.7 106 28 150/78 97 - WBC >12,000 or <4,000 or 10% bands? 2 or more SIRS Criteria Met? B/P:150/78 MAP:102 Creatinine >2.0? UA output<0.5ml/kg/hr for 2 hrs? Platelet count >100,000? Lactate >2.0mmol/1? INR >1.2 or PTT > than 60 sec? Evidence of Organ Dysfunction? Provider documented clinical suspician of infection? N Sepsis Criteria Count: 2 Sepsis Risk: Possible Sepsis Risk General Appearance no apparent distress Eye Exam - bilateral eye PERRL, bilateral eye EOMI Ear, Nose, Throat normal ENT inspection Neck supple Respiratory Status No: respiratory distress. Cardiovascular regular rate/rhythm Peripheral Pulses Pulses normal Yes Gastrointestinal soft, no organomegaly, no pulsatile mass, no guarding, no rebound, no rt lq tenderness Extremities normal inspection Strength 4 Upper Ext (L), 4 Upper Ext (R), 4 Lower Ext (L), 4 Lower Ext (R) Neurologic alert, welfare case worker II-XII nml as tested, no motor/sensory deficits Reflexes Reflexes normal No Mental status normal mood/affect Skin intact Medical Decision Making LABS/Meds/Orders Pt receiving controlled substance in ED? No Results/Orders Laboratory Tests 08/20/17 0005: Sodium 142, Potassium 3.2 L, Chloride 106, Carbon Dioxide 26, BUN 5 L, Creatinine 1.0, Estimated Creat Clear 172, Estimated GFR (MDRD) 94, Glucose 127 H, Calcium 9.1, Total Bilirubin 0.5, AST 16, ALT 39, Alkaline Phosphatase 98, Total Protein 7.5, Albumin 4.1, Globulin 3.4 H, Albumin/Globulin Ratio 1.2, Amylase 28, Lipase 59 L, WBC 10.8, RBC 5.40, Hgb 16.0, Hct 47.2, MCV 87.5, RDW 12.5, Plt Count 198, MPV 9.9, Gran % 64.2, Gran # 6.9, Lymphocytes % 28.4, Monocytes % 4.4, Eosinophils % 2.6, Basophils % 0.5, Lymphocytes # 3.1, Monocytes # 0.5, Eosinophils # 0.3, Basophils # 0.1, PUBS MCHC 33.9, MCH 29.7 08/19/17 2350: Urine Color YELLOW, Urine Appearance CLEAR, Urine pH 6.5, Ur Specific Lithia 1.025, Urine Protein NEGATIVE, Urine Ketones NEGATIVE, Urine Blood NEGATIVE, Urine Nitrate NEGATIVE, Urine Bilirubin NEGATIVE, Urine Urobilinogen 0.2, Ur Leukocyte Esterase NEGATIVE, Urine WBC 3-5, Amorphous Sediment TRACE, Urine Mucus 4+, Urine Glucose NEGATIVE Current Medication Orders Sig/Florina Start time Last Medication Dose Route Stop Time Status Admin Sodium Chloride 10 ML PRN PRN 08/19 2345 AC IV 08/20 2344 Orders Procedure Date/time Status IV SALINE LOCK 08/19 2344 Active URINALYSIS/COMPLETE 08/19 2344 Complete LIPASE 08/19 2344 Complete COMPLETE METABOLIC PANEL 08/19 2344 Complete CBC WITH AUTO DIFF 08/19 2344 Complete AMYLASE 08/19 2344 Complete Departure Departure Time of Disposition 43 Disposition DC Home or Self Care(routine) Clinical Impression Primary Impression: Abdominal pain Qualifiers: Abdominal location: upper abdomen, unspecified Qualified Code: R10.10 - Upper abdominal pain, unspecified Condition STABLE Referrals Maribel Matthew APRN (Family) Patient Instructions DI for Abdominal Pain-Adult Additional Instructions call pcp for follow up Discharge Counseling Counseled pt/family regarding diagnosis, test results, medications/RX, follow up needs ED Critical Care Critical Care No at 0046
[2017-08-20 00:22] LABS: LYMPH # 3.1 K/mm3 (0.7-4.5); LYMPH % 28.4 % (10-50)
[2017-08-20 00:27] LABS: URINE BLOOD NEGATIVE (NEG)
[2017-08-20 00:29] LABS: URINE BILIRUBIN - DIPSTICK NEGATIVE (NEG)
== END 2017-08-20 01:01 | disposition home or self-care (01) ==
LOC: ER 23:14
PROVIDERS: Emergency Medicine
DX: R10.10 Upper abdominal pain, unspecified (principal); R11.10 Vomiting, unspecified; R19.7 Diarrhea, unspecified